=== PATIENT | female | born 1990 | race Caucasian/White ===

== ENCOUNTER → 2016-05-14 10:27 | Outpatient (CLI) | payer MEDICAID ==
[2011-04-01 06:22] VITALS: BMI 25.1
== END | disposition home or self-care (01) ==
LOC: D.US 10:00
DX: R10.13 Epigastric pain (principal)

== ENCOUNTER → 2017-03-16 14:50 | Outpatient (CLI) | payer MEDICAID ==
[2011-04-01 06:22] VITALS: BMI 25.1
== END | disposition home or self-care (01) ==
LOC: D.US 14:50
DX: R22.43 Localized swelling, mass and lump, lower limb, bilateral (principal)

== ENCOUNTER 2017-05-16 14:27 | Outpatient (CLI) | payer MEDICAID ==
[2011-04-01 06:22] VITALS: BMI 25.1
[2017-05-16 15:44] LABS: APPEARANCE HAZY (CLEAR); COLOR YELLOW (YELLOW); SPECIFIC GRAVITY 1.005 (1.005-1.020)
[2017-05-16 15:45] LABS: BILIRUBIN NEGATIVE (NEGATIVE); GLUCOSE NEGATIVE (NEGATIVE); KETONE LARGE mg/dL (NEGATIVE); NITRITE NEGATIVE (NEGATIVE); PROTEIN NEGATIVE (NEGATIVE); UROBILINOGEN NORMAL (NORMAL)
[2017-05-16 18:57] LABS: APPEARANCE CLEAR (CLEAR); BILIRUBIN NEGATIVE (NEGATIVE); COLOR YELLOW (YELLOW); GLUCOSE 1000 mg/dL (NEGATIVE); KETONE LARGE mg/dL (NEGATIVE); NITRITE NEGATIVE (NEGATIVE); PROTEIN NEGATIVE (NEGATIVE); SPECIFIC GRAVITY 1.015 (1.005-1.020); UROBILINOGEN NORMAL (NORMAL)
[2017-05-17 08:42] LABS: APPEARANCE HAZY (CLEAR); COLOR YELLOW (YELLOW); GLUCOSE NEGATIVE (NEGATIVE); NITRITE NEGATIVE (NEGATIVE); PROTEIN NEGATIVE (NEGATIVE)
[2017-05-17 08:43] LABS: BILIRUBIN NEGATIVE (NEGATIVE); KETONE LARGE mg/dL (NEGATIVE); UROBILINOGEN NORMAL (NORMAL)
== END 2017-05-17 11:30 | disposition home or self-care (01) ==
LOC: D.LDO 14:27 → D.LD 21:57 → D.LDO 21:57 → D.LD 05-17 11:30
PROVIDERS: Obstetrics & Gynecology
DX: O26.893 Other specified pregnancy related conditions, third trimester (principal); Z3A.31 31 weeks gestation of pregnancy; R11.2 Nausea with vomiting, unspecified

== ENCOUNTER 2017-07-06 10:54 | Inpatient (IN) | payer MEDICAID ==
[2017-07-06] VITALS (15 sets, daily range): BP systolic 98–127; BP diastolic 55–76; BMI 26.7
[~2017-07-06] VITALS: Ht 154.9 cm; Wt 64.0 kg
--- NOTE | ~2017-07-06 | OP ---
PATIENT NAME: BRIONNA CAMPUZANO MEDICAL RECORD: [id number] :90 LOCATION:[id number] ADMISSION DATE:07/06/17 SURGEON: CLARKE ARNOLD MD DATE OF OPERATION: 07/06/2017 PREOPERATIVE DIAGNOSES: 1. Term intrauterine at 39 weeks. 2. Fetus in the tabitha breech presentation. POSTOPERATIVE DIAGNOSES: 1. Term intrauterine at 39 weeks. 2. Fetus in the tabitha breech presentation. PROCEDURE: Primary low transverse section. SURGEON: Clarke Arnold MD ANESTHESIA: Regional via spinal. INTRAVENOUS FLUIDS: Per anesthesia record. SPECIMENS: Placenta and cord for gases. FINDINGS: 1. Viable infant in the tabitha breech presentation. 2. Placenta delivered manually intact, 3-vessel cord. 3. Normal adnexa bilaterally. PROCEDURE IN DETAIL: The patient was taken to the operating room where regional anesthesia was achieved without difficulty. The patient was then prepped and draped in normal sterile fashion in the dorsal supine position. SCDs were on and functioning normally. A Alcocer catheter had been placed and was draining freely. At this point, a Pfannenstiel skin incision was made and extended downward to the underlying subcutaneous fat to level of the fascia, which was then excised in the midline with scalpel and dissected bilaterally using the Davenport scissors. Superior and inferior aspect of the fascial incision were then grasped with Dante clamps times 2, tented upward, and sharply dissected from the underlying rectus muscle using the Davenport scissors and the Bovie cautery. At this point, the rectus muscles were bluntly in the midline and the peritoneum entered sharply at the superior aspect of the incision using the Metzenbaum scissors. The peritoneal incision was extended bilaterally using the Metzenbaum scissors and a bladder blade was placed into the pelvis. A bladder flap was created by excising the anterior leaf of the broad ligament across the lower uterine segment using the Metzenbaum scissors. The bladder blade was then replaced and a low transverse incision was made in the uterus using the scalpel. This was extended superiorly and inferiorly using the Pelosi method and the breech was identified, grasped at the hips, and rotated dorsally. The vertex was then delivered atraumatically followed by the legs, the right shoulder, left shoulder, and then the head without difficulty. Infant was then bulb suctioned. Cord was clamped times 2, cut, and the was handed to the awaiting nursery team. Cord was obtained for gases. The placenta was then removed manually intact, 3-vessel cord was noted. The uterus was exteriorized, cleared of all clots and debris, and repaired with 0 Vicryl in a running locked fashion times 2 with good hemostasis noted. Posterior cul-de-sac was then thoroughly irrigated and the uterus was replaced into the pelvis. The uterine OPERATIVE REPORT [id number] BRIONNA CAPMUZANO incision was again checked for hemostasis and the anterior cul-de-sac was then thoroughly irrigated. Counts were correct times 2 for needles, sponges, and laps. The fascia was repaired with 0 loop PDS times 1 and skin repaired with sakina. The patient tolerated procedure well and transferred to postanesthesia recovery stable without incident. TRANSINT:[id number] Voice Confirmation ID: [id number] DOCUMENT ID: [id number] CLARKE ARNOLD MD at 0739 CC: [id number] DICTATION DATE: 07/25/17723 OCCUPATIONAL ANALYST: 07/25/17 1346 DIS IN 07/08/17 [facility] [address] [place] [address]
[2017-07-06] MEDS ORDERED: XANAX0.5 MG PO (11:10)
[2017-07-06] MEDS ORDERED: PRENATAL COMPLE1 TAB PO (11:12)
[2017-07-06] MEDS ORDERED: OMEPRAZOLE40 MG PO (11:12)
[2017-07-06 11:47] LABS: HEMATOCRIT 34.1 % (36.0-48.0); HEMOGLOBIN 11.8 g/dL (12-16); MCH 31.6 pg (26.0-34.0); MCHC 34.6 g/dL (31.0-37.0); MCV 91.2 fL (80.0-100.0); MEAN PLATELET VOLUME 10.3 fL (7.4-10.4); RBC 3.74 10x6/uL (4.00-5.40); RDW 14.6 % (11.5-14.5); WBC 10.4 10x3/uL (4.8-10.8)
[2017-07-06 11:51] LABS: UDS - AMPHET NEGATIVE QUAL (NEGATIVE); UDS - BARB NEGATIVE QUAL (NEGATIVE); UDS - BENZO POSITIVE QUAL (NEGATIVE); UDS - COCAINE NEGATIVE QUAL (NEGATIVE); UDS - OPIATE NEGATIVE QUAL (NEGATIVE); UDS - PCP NEGATIVE QUAL (NEGATIVE); UDS - THC POSITIVE QUAL (NEGATIVE)
[2017-07-06 21:25] LABS: BASOPHILS 0.2 % (0-2); EOSINOPHILS 0.1 % (0-7); HEMATOCRIT 27.6 % (36.0-48.0); HEMOGLOBIN 9.5 g/dL (12-16); IMMATURE GRANULOCYTES 0.4 % (0-5); LYMPHOCYTES 14.2 % (15-50); MCH 31.4 pg (26.0-34.0); MCHC 34.4 g/dL (31.0-37.0); MCV 91.1 fL (80.0-100.0); MEAN PLATELET VOLUME 9.7 fL (7.4-10.4); NEUTROPHILS 79.1 % (40-80); PLATELET COUNT 177 10x3/uL (130-400); RBC 3.03 10x6/uL (4.00-5.40); RDW 14.5 % (11.5-14.5)
[2017-07-07 03:12] VITALS: BP 101/61
[2017-07-07 07:55] LABS: BASOPHILS 0.2 % (0-2); EOSINOPHILS 0.6 % (0-7); HEMATOCRIT 26.1 % (36.0-48.0); HEMOGLOBIN 8.8 g/dL (12-16); IMMATURE GRANULOCYTES 0.3 % (0-5); LYMPHOCYTES 16.7 % (15-50); MCHC 33.7 g/dL (31.0-37.0); MCV 91.9 fL (80.0-100.0); MEAN PLATELET VOLUME 9.4 fL (7.4-10.4); NEUTROPHILS 73.2 % (40-80); PLATELET COUNT 165 10x3/uL (130-400); RBC 2.84 10x6/uL (4.00-5.40); RDW 14.6 % (11.5-14.5)
[2017-07-07 07:58] LABS: WBC 11.4 10x3/uL (4.8-10.8)
[2017-07-07 08:00] VITALS: BP 107/60
[2017-07-07 10:46] VITALS: Ht 154.9 cm; Wt 64.0 kg
[2017-07-07 12:00] VITALS: BP 107/65
[2017-07-07 19:17] VITALS: BP 101/63
[2017-07-07 22:01] VITALS: BP 105/68
[2017-07-08 02:41] VITALS: BP 111/65
[2017-07-08 06:15] LABS: RAPID PLASMA REAGIN Non Reactive (Non Reactive)
[2017-07-08 07:30] VITALS: BP 106/63
[2017-07-08] MEDS ORDERED: HYDROCODONE-APA1 TAB PO (13:46)
[2017-07-08] MEDS ORDERED: MOTRIN600 MG PO (13:46)
[2017-07-13 09:16] LABS: UDSC - AMPHET Negative ng/mL (Cutoff=1000); UDSC - BARB Negative ng/mL (Cutoff=300); UDSC - BENZO Negative (Cutoff=300); UDSC - COC Negative ng/mL (Cutoff=300); UDSC - METH Negative ng/mL (Cutoff=300); UDSC - OPIATES Negative ng/mL (Cutoff=300); UDSC - PCP Negative ng/mL (Cutoff=25); UDSC - PROPOXY Negative ng/mL (Cutoff=300); UDSC - THC Positive (Cutoff=50)
== END 2017-07-08 15:56 | disposition home or self-care (01) | DRG 765 ==
LOC: D.LD 10:54 → D.SDCHOLD 12:00 → D.LD 07-08 15:56
PROVIDERS: Obstetrics & Gynecology
PROC: 10D00Z1 Extraction of Products of Conception, Low, Open Approach (ICD-10-PCS; principal; 2017-07-06 12:00)
DX: O32.1XX0 Maternal care for breech presentation, not applicable or unspecified (principal); O99.324 Drug use complicating childbirth; Z3A.39 39 weeks gestation of pregnancy; Z37.0 Single live birth; F12.980 Cannabis use, unspecified with anxiety disorder; O99.334 Smoking (tobacco) complicating childbirth; O99.344 Other mental disorders complicating childbirth

== ENCOUNTER 2019-03-21 13:57 | Emergency (ER) | payer MEDICAID ==
[~2019-03-21] VITALS: Ht 154.9 cm; Wt 52.3 kg
[~2019-03-21 13:57] MED LIST: HYDROCODONE-APA1 TAB PO; MOTRIN600 MG PO; OMEPRAZOLE40 MG PO; PRENATAL COMPLE1 TAB PO; XANAX0.5 MG PO
[2019-03-21 14:10] VITALS: Ht 154.9 cm; Wt 52.3 kg
[2019-03-21 14:44] LABS: BASOPHILS 0.2 % (0-2); EOSINOPHILS 1.2 % (0-7); HEMATOCRIT 35.5 % (36.0-48.0); HEMOGLOBIN 12.2 g/dL (12-16); IMMATURE GRANULOCYTES 0.1 % (0-5); LYMPHOCYTES 26.3 % (15-50); MCH 30.2 pg (26.0-34.0); MCHC 34.4 g/dL (31.0-37.0); MCV 87.9 fL (80.0-100.0); MEAN PLATELET VOLUME 8.7 fL (7.4-10.4); MONOCYTES 7.2 % (2-11); PLATELET COUNT 195 10x3/uL (130-400); RBC 4.04 10x6/uL (4.00-5.40); RDW 13.1 % (11.5-14.5); WBC 8.4 10x3/uL (4.8-10.8)
[2019-03-21 15:01] LABS: CALC OSMOLALITY 270 mosm/kg (275-300); CALCIUM 8.9 mg/dL (8.5-10.1); CARBON DIOXIDE 26.7 mmol/L (21.0-32.0); CHLORIDE - SERUM 104 mmol/L (98-107); CREATININE - SERUM 0.4 mg/dL (0.6-1.3); GLUCOSE 78 mg/dL (74-106); POTASSIUM - SERUM 3.8 mmol/L (3.5-5.1); SODIUM 136 mmol/L (136-145); UREA NITROGEN 12 mg/dL (7-18); eGFR NON AFRICAN AMERICAN > 90 mL/min (90-120)
[2019-03-21 15:09] LABS: ALBUMIN 3.6 g/dL (3.4-5.0); ALKALINE PHOSPHATASE 36 U/L (46-116); ALT (SGPT) 15 U/L (10-68); AMYLASE - SERUM 41 U/L (25-115); BILIRUBIN - TOTAL 0.17 mg/dL (0.2-1.3); LIPASE 83 U/L (73-393); PROTEIN - SERUM 7.2 g/dL (6.4-8.2)
[2019-03-21 15:13] LABS: TROPONIN-I < 0.017 ng/mL (0.000-0.060)
[2019-03-21 15:57] LABS: APPEARANCE CLEAR (CLEAR); BILIRUBIN NEGATIVE (NEGATIVE); COLOR YELLOW (YELLOW); GLUCOSE NEGATIVE (NEGATIVE); KETONE NEGATIVE (NEGATIVE); NITRITE NEGATIVE (NEGATIVE); PROTEIN NEGATIVE (NEGATIVE); UROBILINOGEN NORMAL (NORMAL)
[2019-03-21 15:58] LABS: HCG URINE POSITIVE (NEGATIVE)
[2019-03-21 20:15] VITALS: BP 130/76
== END 2019-03-21 20:00 | disposition home or self-care (01) ==
LOC: D.ER 13:57
PROVIDERS: Family Medicine
DX: O26.891 Other specified pregnancy related conditions, first trimester (principal); Z3A.09 9 weeks gestation of pregnancy; Z72.0 Tobacco use; Z32.01 Encounter for pregnancy test, result positive; R10.31 Right lower quadrant pain

== ENCOUNTER 2019-09-30 03:23 | Inpatient (IN) | payer MEDICAID ==
[~2019-09-30] VITALS: Ht 154.9 cm; Wt 65.8 kg
[2019-09-30] MEDS ORDERED: OMEPRAZOLE20 M1 PO (04:38)
[2019-09-30] MEDS ORDERED: FERROUS SULFAT325 MG PO (04:40)
[2019-09-30 04:46] VITALS: BP 116/75; Ht 154.9 cm; Wt 65.8 kg
[2019-09-30 04:55] LABS: UDS - AMPHET NEGATIVE QUAL (NEGATIVE); UDS - BARB NEGATIVE QUAL (NEGATIVE); UDS - BENZO POSITIVE QUAL (NEGATIVE); UDS - COCAINE NEGATIVE QUAL (NEGATIVE); UDS - OPIATE NEGATIVE QUAL (NEGATIVE); UDS - PCP NEGATIVE QUAL (NEGATIVE); UDS - THC NEGATIVE QUAL (NEGATIVE)
[2019-09-30 06:09] LABS: HEMATOCRIT 32.2 % (36.0-48.0); HEMOGLOBIN 10.7 g/dL (12-16); MCH 29.2 pg (26.0-34.0); MCHC 33.2 g/dL (31.0-37.0); MEAN PLATELET VOLUME 10.2 fL (7.4-10.4); RBC 3.66 10x6/uL (4.00-5.40); RDW 14.8 % (11.5-14.5); WBC 18.3 10x3/uL (4.8-10.8)
--- NOTE | 2019-09-30 07:10 | NUR ---
ASSUMED CARE OF THIS PATIENT. CURRENTLY SLEEPING, EYES CLOSED ON RIGHT SIDE. FOB ON COUCH AWAKE. INFANT IN NURSERY. WILL COMPLETE ASSESSMENT WHEN AWAKE. SIDERAILS UP X 2, CALL LIGHT IN REACH.
--- NOTE | 2019-09-30 08:31 | NUR ---
SLEEPING ON BACK, RESPIRATIONS EVEN. FOB SLEEPING IN BED WITH PATIENT. INFANT REMAINS IN NUSERY. REGULAR DIET BREAKFAST AT BEDSIDE. SIDERAILS REMAIN UP X 2.
[2019-09-30 09:22] VITALS: BP 101/64
--- NOTE | 2019-09-30 09:22 | NUR ---
AROUSED FROM SLEEP FOR SHIFT ASSESSMENT. KEPT EYES CLOSED DURING CONVERSATION AND ASSESSMENT. PERIODICALLY OPENED EYES BUT PREFERRED TO KEEP THEM CLOSED. FOB IN ROOM HAND FEEDING PATIENT. DENIES PAIN, U/3 FIRM RUBRA SCANT, INFANT REMAINS IN NURSERY. PLANS TO , RH POSITIVE. DECLINED NICOTINE PATCH. TELEPHONE NUMBER GIVEN SO THEY CAN CONTACT NURSERY PRN TO CHECK ON OR CALL WHEN READY TO GO SEE IN NURSERY. FOB REQUESTED FOOD TRAY. AWARE TOO LATE FOR BREAKFAST AND MEALS ARE $5.00. ORDERED LUNCH TRAY FOR HIM. NO ADDITIONAL REQUESTS. SIDERAILS UP X 2, CALL LIGHT IN REACH.
--- NOTE | 2019-09-30 11:02 | NUR ---
SLEEPING ON LEFT SIDE. RESPIRATIONS EVEN. FOB SLEEPING IN BED WITH PT. INFANT REMAINS IN NURSERY. SIDE RAILS UP X2.
--- NOTE | 2019-09-30 12:44 | NUR ---
REGULAR DIET WAS SERVED, FOB RECEIVED REGULAR DIET ALSO AFTER PAYING $5.00 TO [employer]. CURRENTLY SLEEPING, RESPIRATIONS EVEN. INFANT REMAINS IN NURSERY.
--- NOTE | 2019-09-30 12:54 | NUR ---
AWAKE, SITTING UP IN BED EATING DINNER. SAYS SHE STILL FEELS TIRED. SAYS SHE TALKED TO NURSERY ABOUT THE BABY, THEY WERE GOING TO BRING HIM TO HER TO FEED BUT HE IS STILL ON THE O2. INSTRUCTED PT THAT SHE CAN GO OVER THERE TO HOLD AND POSSIBLY FEED WHEN SHE IS READY. FOB IN ROOM. NO REQUESTS AT PRESENT. TO CALL IF ANYTHING IS NEEDED.
--- NOTE | 2019-09-30 14:14 | NUR ---
LAYING IN BED SLEEPING, AROUSED EASILY BUT THEN CLOSED EYES. FOB IN BED WITH PT. SAYS THEY PLAN TO GO VISIT THE BABY IN ABOUT THIRTY MINUTES. TO CALL IF ANYTHING IS NEEDED.
[2019-09-30 16:13] VITALS: BP 104/65
--- NOTE | 2019-09-30 16:22 | NUR ---
U/2 FIRM, MIDLINE, RUBRA SMALL. UP TO BATHROOM TO VOID. INSTRUCTED ON USE OF WARM WATER AND BETADINE. C/O 4/10 CRAMPING/PERINEAL PAIN. MOTRIN 600 MG GIVEN PO FOR RELIEF. OFFERED ICE PACK. DECLINED AT THIS TIME. GETTING READY TO AMBULATE TO NURSERY WITH FOB TO SEE .
--- NOTE | 2019-09-30 16:45 | NUR ---
IN NURSERY VISITING .
--- NOTE | 2019-09-30 17:15 | NUR ---
RETURNED TO ROOM AFTER AMBULATING. NO REQUESTS.
--- NOTE | 2019-09-30 17:39 | NUR ---
SITTING UP IN BED EATING DINNER. SAYS HER PAIN IS STILL THE SAME "BUT I'M ALRIGHT." DECLINED ICE PACK. NO REQUESTS. FOB DINNER TRAY WAS SERVED. TO CALL IF ANYTHING IS NEEDED.
--- NOTE | 2019-09-30 18:29 | NUR ---
SLEEPING LOW FOWLERS POSITION. RESPIRATIONS EVEN NO CURRENT VISITORS. REMAINS IN THE NURSERY. SIDERAILS UP X 2.
[2019-09-30 19:23] VITALS: BP 88/51
--- NOTE | 2019-09-30 19:25 | NUR ---
pt rec'd resting quietly in r lateral position, arouses easily to name called ang light on, pt found to have moist skin to touch, vs taken and noted temp 100.o orally, extra blanket removed, noted temp in room 80f, room temp decreaed to 74. will retake temp in 1 hour, assessment completed see assessment sheet
--- NOTE | 2019-09-30 20:10 | NUR ---
recheck on temp 99.6 orally
--- NOTE | 2019-09-30 21:16 | NUR ---
continues to be drowsy, sitting up holding in bed, requested to put baby in crib. pt refuses, ob history done at this time due to pt being admitted this morning w/ delivery being imminent, pt states was a c/s in 2018 for breech presentation
--- NOTE | 2019-09-30 23:12 | NUR ---
pharmacy used verified w/ pt to verify rx for xanax and for suboxone. pt admits to using suboxone as recently as yesterday morning. rx for xanax identified but no rx for suboxone id'd.
--- NOTE | 2019-10-01 00:12 | NUR ---
call to dr christopher, report given regarding pt temp 100.8 orally. also that temp was 100.0 at begining of shift that dropped to 99.6 w/o antipyretic medication. orders rec'd to go ahead and medicate w/ motrin as pt requested then watch for another spike in temp.
[2019-10-01 02:00] VITALS: BP 126/75
--- NOTE | 2019-10-01 02:01 | NUR ---
pt up ambulating in holder to get coffee. states is feeling "better" but needs to smoke. offered nicotine patch pt refused. clean gown and linens given for shower
--- NOTE | 2019-10-01 04:15 | NUR ---
pt ambulating in holder w/ sig other, no needs voiced.
[2019-10-01 06:10] LABS: HEMATOCRIT 27.6 % (36.0-48.0); LYMPHOCYTES 17.4 % (15-50); MCH 28.5 pg (26.0-34.0); MCHC 32.6 g/dL (31.0-37.0); MCV 87.3 fL (80.0-100.0); MEAN PLATELET VOLUME 9.3 fL (7.4-10.4); NEUTROPHILS 75.4 % (40-80); PLATELET COUNT 261 10x3/uL (130-400); RBC 3.16 10x6/uL (4.00-5.40); RDW 14.6 % (11.5-14.5)
[2019-10-01 06:23] LABS: WBC 9.3 10x3/uL (4.8-10.8)
[2019-10-01 07:06] VITALS: BP 99/64
--- NOTE | 2019-10-01 07:12 | NUR ---
AWAKE- SITTING UP IN BED. BABY AT BREAST. ASSESSMENT DONE. VERBAL RESPONSES APPRO TO QUESTIONS. DENIES NEEDS. FUNDUS U1/FIRM. SMALL LOCHIA NOTED ON KAIT PAD.
--- NOTE | 2019-10-01 08:25 | NUR ---
RESTING IN BED. IBUPROFEN 600MG GIVEN FOR CRAMPING. ICE WATER GIVEN. DENIES OTHER NEEDS.
[2019-10-01 12:16] VITALS: BP 98/61
--- NOTE | 2019-10-01 12:17 | NUR ---
SITTING UP IN BED. NURSERY NURSE IN ROOM. PT DENIES NEEDS.
--- NOTE | 2019-10-01 17:30 | NUR ---
infant to nursery. up to shower- linens changed. tolerated well.
[2019-10-01 19:33] VITALS: BP 113/68
--- NOTE | 2019-10-01 19:51 | NUR ---
pt rec'd alert and oriented, sitting up in bed using breast pump, baby in open crib at bs, assessment completed, medicated for cramping, noted temp 99.5 w/ vs. will continue to monitor
--- NOTE | 2019-10-01 21:08 | NUR ---
resting quietly in room w/ twins and fob at bedside, ivf infusing w/ 200ltc via pump at 125ml/hr. fundus remains firm a u+1, lochia scant. no needs voice at this time
--- NOTE | 2019-10-01 21:17 | NUR ---
pt remains in room w/ fob at bedside, in open crib in room. sl d/c'd tip intact, site covered w/ 4x4 and bandaid. fob brougt food from [employer] and pt and fob are eating currently. no needs voiced
--- NOTE | 2019-10-01 23:55 | NUR ---
sitting up in bed w/ sig other watching tv, invited questions, none given, no needs voiced.
--- NOTE | 2019-10-02 01:51 | NUR ---
room check, pt resting quietly in bed w/ sig other, eyes closed, respirations deep and even, did not disturb, in open crib at bedside
--- NOTE | 2019-10-02 02:06 | NUR ---
sig other of pt to desk w/ ebm aprox 1 oz, labeled w/ pt name and dated, given to nsy to refrigerate. 4 packaged volufeeds w/ lids given to sig other to give to pt for future pumping
--- NOTE | 2019-10-02 04:25 | NUR ---
pt resting quietly in bed, eyes closed, appears to be asleep, sig other in bed w/ pt, in open crib at bedside. did not disturb
--- NOTE | 2019-10-02 07:50 | NUR ---
THIS RN TO ROOM FOR SHIFT ASSESSMENT. PT SLEEPING ON LEFT SIDE, SIG OTHER IN BED WITH PT ASLEEP WELL. PT RESP EVEN AND UNLABORED. RESTING IN [place] AT BEDSIDE. WILL ALLOW PT TO REST AND RETURN FOR SHIFT ASSESSMENT.
--- NOTE | 2019-10-02 08:25 | NUR ---
THIS RN TO ROOM FOR PT CHECK AND SHIFT ASSESSMENT. PT LYING IN BED, SUPINE, RESP EVEN AND UNLABORED. SIG OTHER IN BED NEXT TO PT, SLEEPING. SRUx2, CL IN REACH. WILL CONT TO MONITOR.
--- NOTE | 2019-10-02 09:10 | NUR ---
DR JIANG TO ROOM FOR ROUNDING, DISCUSSING DISCHARGE PLAN TO ROOM IN UNTIL CAN BE DISCHARGED HOME. DR JIANG GIVES ORDER FOR DEPO PROVERA INJECTION FOR CONTROL IF PT DESIRES, AND TO F/U WITH HER IN CLINIC IN 6 WEEKS. DISCHARGE TEACHING DISCUSSED AND PRECAUTIONS GIVEN PER DR JIANG. PT DENIES ANY QUESTIONS OR CONCERNS, VERBALIZES UNDERSTANDING.
[2019-10-02 09:14] VITALS: BP 106/66
--- NOTE | 2019-10-02 09:21 | NUR ---
SHIFT ASSESSMENT COMPLETED, VSS, SEE FLOWSHEET FOR DOC. PT RATES PAIN 4/10 AT THIS TIME, MOTRIN ADMIN ORDERED, SEE EMAR FOR DOC. PT DENIES HEAVY BLEEDING OR CLOTS, LOCHIA AND S/S TO REPORT DISCUSSED. D/C PLANNING AND ROOMING IN DISCUSSED. PT DENIES QUESTIONS. PADS AND PANTIES GIVEN PER REQUEST. FRESH ICE WATER GIVEN. PT DENIES FURTHER NEEDS. SRUx2, CL IN REACH. WILL PROCEED WITH D/C TO ROOMING IN ORDERED.
--- NOTE | 2019-10-02 11:05 | NUR ---
PT GIVEN DISCHARGE INSTRUCTIONS WELL ROOMING IN AGREEMENT. PT VERBALIZES UNDERSTANDING AND DENIES ANY QUESTIONS. PT SIGNS CHART COPIES. PT REQUESTS DEPO PROVERA INJECTION DISCUSSED WITH DR JIANG, AND A LANOLIN SAMPLE. WILL ADMIN ORDERED.
--- NOTE | 2019-10-02 11:21 | NUR ---
DEPO PROVERA INJECTION ADMIN TO LEFT VASTUS LATERALIS, SEE EMAR FOR DOC. PT ALSO PROVIDED WITH LANOLIN SAMPLE REQUESTED. PT DENIES FURTHER NEEDS. WILL MOVE PT TO ROOMING IN STATUS IN .S. ROOM 1220 ORDERED.
--- NOTE | 2019-10-02 11:30 | NUR ---
PT TRANSFERRED TO ROOM 1220, BELONGINGS TRANSFERRED WELL WITH ASSIST FROM SIG OTHER. PT ORIENTED TO ROOM AND ROOMING IN GUIDELINES. NURSERY NOTIFIED.
[2019-10-03 03:07] LABS: HEPATITIS C ANTIBODY 0.1 S/CO RAT (0.0-0.9); RAPID PLASMA REAGIN Non Reactive (Non Reactive)
[2019-10-03 10:11] LABS: RUBELLA IGG 3.14 index (Immune >0.99)
== END 2019-10-02 11:31 | disposition home or self-care (01) | DRG 807 ==
LOC: D.LDO 03:23 → D.LD 03:53 → D.WS 10-02 11:30
PROVIDERS: ADMIT Student in an Organized Health Care Education/Training Program; ATTEND Student in an Organized Health Care Education/Training Program
PROC: 10E0XZZ Delivery of Products of Conception, External Approach (ICD-10-PCS; principal; 2019-09-30)
PROC: 0UQMXZZ Repair Vulva, External Approach (ICD-10-PCS; 2019-09-30)
DX: O34.211 Maternal care for low transverse scar from previous cesarean delivery (principal); Z37.0 Single live birth; N85.8 Other specified noninflammatory disorders of uterus; Z3A.37 37 weeks gestation of pregnancy; O09.33 Supervision of pregnancy with insufficient antenatal care, third trimester